=== PATIENT | male | born 1955 | race Caucasian/White ===

== ENCOUNTER 2017-01-18 05:55 | Day surgery (SDC) | payer OTHER ==
[2017-01-18] MEDS ORDERED: DIPRIVAN 200 MG/20 ML IV ONE (05:56)
[2017-01-18] MEDS ORDERED: Versed 2 MG/2 ML Injection IV ONE (05:56)
[2017-01-18] MEDS ORDERED: Lactated Ringers 1,000 ML IV SCH (06:30)
[2017-01-18 13:59] VITALS: O2SAT 97
[2017-01-18 14:02] VITALS: BP 127/92; PULSE 56
--- NOTE | 2017-01-18 14:19 | OP ---
SURGERY DATE/TIME: 01/18/2017 0800 PREOPERATIVE DIAGNOSIS: History of colon polyps. POSTOPERATIVE DIAGNOSIS: Small polyps in the transverse colon and rectum. PROCEDURE: Colonoscopy with biopsy. SURGEON: Dr. Campos. ANESTHESIA: MAC. Medications given by anesthesia department. HISTORY: The patient is a 61 year-old white male presenting now for history of colon polyps for re-evaluation. The patient was reappraised of the risks of the procedure including the risk of perforation, phlebitis, untoward reaction to medication, bleeding and missed lesions. The patient verbalized his understanding and desired to have the procedure performed. DESCRIPTION OF PROCEDURE: The patient was given the medications by the anesthesia department. He had continuous pulse oximetry, ECG monitoring, intermittent blood pressure monitoring and tidal CO2 monitoring during the examination. He was placed in the left lateral decubitus position. A digital rectal examination was performed and revealed normal anal sphincter tone and no masses and normal prostate. The flexible Olympus pediatric colonoscope was used to intubate the rectum. A view of the colon was developed sequentially to the cecum. Upon insertion and withdrawal were noted some small polyps in the transverse colon and rectum. Cold biopsy technique was used to biopsy the lesions to detect any potential adenomatous change. The scope was removed from the patient who tolerated the procedure well and was sent back to OP recovery in good condition. The prep was noted to be fair to good.
== END 2017-01-18 09:50 | disposition home or self-care (01) ==
LOC: SDC 05:55
PROVIDERS: ATTEND Family Medicine
PROC: 0DBP8ZX Excision of Rectum, Via Natural or Artificial Opening Endoscopic, Diagnostic (ICD-10-PCS; principal; 2017-01-18)
PROC: 0DBN8ZX Excision of Sigmoid Colon, Via Natural or Artificial Opening Endoscopic, Diagnostic (ICD-10-PCS; 2017-01-18)
DX: K63.5 Polyp of colon (principal); K62.1 Rectal polyp
CPT/HCPCS: 00810; J2250; J2704

== ENCOUNTER 2022-07-27 08:58 | Day surgery (SDC) | payer MEDICARE, OTHER ==
--- NOTE | 2022-07-27 08:12 | HP ---
DATE OF SURGERY: 07/27/2022 HISTORY OF PRESENT ILLNESS: The patient is a 66-year-old with history of polyps. Last colonoscopy five years ago. No bloody stools. No change in bowel movements. No new pain. Family history negative for colon cancer. PAST MEDICAL HISTORY: Blood clot right leg in the past. History of colon polyps, hypertension, gastroesophageal reflux disease, arthritis. PAST SURGICAL HISTORY: Hip replacement. Knee replacement. Colonoscopy in the past. MEDICATIONS: Xarelto, amlodipine, metoprolol. ALLERGIES: NKDA. FAMILY HISTORY: Leukemia and diabetes. Negative for colon cancer. problem. SOCIAL HISTORY: Former smoker. Occasional alcohol use. REVIEW OF SYSTEMS: Fourteen systems reviewed. No chest pain or palpitations. Other systems negative or noncontributory as above and per preadmission questionnaire. He has history of blood clots. PHYSICAL EXAMINATION: Height 6'2". BMI 30.8. GENERAL: No acute distress. HEENT: Sclerae nonicteric. EOMI. Oropharynx mucous membranes moist. NECK: No JVD. CHEST: Equal excursion, nonlabored breathing. CVS: Regular rate and rhythm. ABDOMEN: Soft. No peritoneal signs. EXTREMITIES: No cyanosis or edema. NEURO: Alert, oriented, moving extremities symmetrically. RECTAL: Deferred timed to endoscopy exam. PSYCH: Appropriate mood and affect. SKIN: Dry. IMPRESSION: History of polyps, needs follow up screening colonoscopy. I feel he is a candidate. He was shown the risk sheet, explained the procedure in detail including but not limited to risk of bleeding or infection, risk of bowel injury or perforation, risk of missed or nondiagnosis or incomplete exam possibly requiring barium enema, other studies or procedures, general risk of anesthesia or sedation, risk of bowel prep but not limited to, consent obtained. Will proceed with outpatient follow up screening colonoscopy.
[2022-07-27] MEDS ORDERED: Lactated Ringers 1,000 ML IV SCH (10:00)
[2022-07-27] MEDS ORDERED: Versed 2 MG/2 ML Injection ONE (11:11)
[2022-07-27] MEDS ORDERED: Xylocaine-Mpf 2% 5 Ml Vial ONE (11:11)
[2022-07-27] MEDS ORDERED: DIPRIVAN 200 MG/20 ML IV ONE ×2 (11:11→11:33)
[2022-07-27 12:28] VITALS: BP 128/82; PULSE 58; O2SAT 97
--- NOTE | 2022-07-27 13:06 | OP ---
SURGERY DATE/TIME: 07/27/2022 1115 PREOPERATIVE DIAGNOSIS: History of polyps, needs follow up screening colonoscopy. POSTOPERATIVE DIAGNOSES: 1) Colon and rectum polyps. 2) Two scattered small diverticula. 3) Fair bowel prep. 4) ASA Class II. 5) Colon withdrawal time approximately 13 minutes. PROCEDURES: Colonoscopy. SURGEON: Dr. Shaun Rock. ANESTHESIA: MAC. ESTIMATED BLOOD LOSS: Minimal. INDICATIONS: As noted above. Risks and benefits explained in detail but not limited to and consent obtained. DESCRIPTION OF PROCEDURE AND FINDINGS: The patient is taken to the endoscopy room. MAC anesthesia induced. After official time out and no disagreement with planned procedure, digital rectal exam did not reveal any rectal masses. Video colonoscope inserted and passed up through the slightly tortuous sigmoid, descending, transverse and ascending colon. With the external pressure by two different staff members pressing on the abdomen, the scope was able to be passed around to the cecum. Appendiceal orifice and valve well visualized. Prep overall was fair with a fair amount of liquidy semisolid stool particularly in the proximal right colon just slightly limiting the exam for small lesions. There are no signs of any other obvious large lesions or masses there. It was suctioned and irrigated as clear as possible. The scope is slowly and carefully withdrawn over the next 13 minutes. In the distal transverse, there was a small 2.5 to 3 mm polyp removed in two pieces with hot biopsy polypectomy. Good hemostasis noted. The scope is pulled back in the sigmoid colon. A 3.5 to 4 mm polyp removed with hot snare polypectomy. Good hemostasis noted. Another small 2 mm polyp removed with hot biopsy polypectomy in the proximal rectum. The patient had a few tiny diverticula otherwise no signs of any other large polyps, masses or obstructing lesions here. The scope is withdrawn. Again, withdrawal time had been around 13 minutes. There were no immediate complications. Findings discussed with the family out in the waiting area. I will see him back in the office in a week to go over the biopsy results. If polyps are benign tubular adenoma, would likely recommend two year follow up but will await final path to make determination.
== END 2022-07-27 12:30 | disposition home or self-care (01) ==
LOC: SDC 08:58
PROVIDERS: ATTEND Surgery
DX: Z12.11 Encounter for screening for malignant neoplasm of colon (principal); Z09 Encounter for follow-up examination after completed treatment for conditions other than malignant neoplasm; Z86.010 Personal history of colon polyps; D12.7 Benign neoplasm of rectosigmoid junction; D12.5 Benign neoplasm of sigmoid colon; D12.3 Benign neoplasm of transverse colon; K57.30 Diverticulosis of large intestine without perforation or abscess without bleeding
CPT/HCPCS: J2250; J2704